=== PATIENT | male | born 1975 | race Caucasian/White ===

== ENCOUNTER → 2018-03-10 07:19 | Outpatient (CLI) | payer BC ==
[2015-01-10 06:02] VITALS: BMI 37.6
[~2018-03-10 07:19] MED LIST: CYMBALTA30 MG PO; HYDROCODONE-APA1 TAB PO; NORVASC10 MG PO; PRINIVIL20 MG PO; SOMA350 MG PO; TESTOSTERON200 MG/ML IM; VOLTAREN75 MG PO
[2018-03-10 07:39] LABS: BASOPHILS 0.3 % (0-2); HEMOGLOBIN 16.1 g/dL (13.5-17.5); IMMATURE GRANULOCYTES 0.5 % (0-5); LYMPHOCYTES 30.7 % (15-50); MCH 31.9 pg (26.0-34.0); MCHC 35.8 g/dL (31.0-37.0); MCV 89.1 fL (80.0-100.0); MEAN PLATELET VOLUME 9.3 fL (7.4-10.4); MONOCYTES 12.5 % (2-11); PLATELET COUNT 244 10x3/uL (130-400); RBC 5.05 10x6/uL (4.20-6.10); RDW 14.2 % (11.5-14.5); WBC 6.2 10x3/uL (4.8-10.8)
[2018-03-10 08:05] LABS: ALBUMIN 3.7 g/dL (3.4-5.0); ALKALINE PHOSPHATASE 89 U/L (46-116); ALT (SGPT) 52 U/L (10-68); BILIRUBIN - TOTAL 0.33 mg/dL (0.2-1.3); CALCIUM 8.6 mg/dL (8.5-10.1); CARBON DIOXIDE 24.3 mmol/L (21.0-32.0); CHLORIDE - SERUM 101 mmol/L (98-107); CHOL - HDL RATIO 6.4 ratio (2.3-4.9); CHOLESTEROL, TOTAL 217 mg/dL (0-200); CREATININE - SERUM 1.1 mg/dL (0.6-1.3); HDL CHOLESTEROL 34 mg/dL (32-96); POTASSIUM - SERUM 4.2 mmol/L (3.5-5.1); PROTEIN - SERUM 7.8 g/dL (6.4-8.2); SODIUM 136 mmol/L (136-145); TRIGLYCERIDE 495 mg/dL (30-200); UREA NITROGEN 16 mg/dL (7-18); eGFR NON AFRICAN AMERICAN 77 mL/min (90-120)
[2018-03-10 08:06] LABS: CALC OSMOLALITY 279 mosm/kg (275-300); GLUCOSE 223 mg/dL (74-106)
[2018-03-12 04:13] LABS: TESTOSTERONE - FREE 17.7 pg/mL (6.8-21.5); TESTOSTERONE - SERUM 334 ng/dL (264-916)
== END | disposition home or self-care (01) ==
LOC: D.LAB 03-09 08:24
PROVIDERS: Family Medicine
DX: I10 Essential (primary) hypertension (principal); R79.89 Other specified abnormal findings of blood chemistry; E11.9 Type 2 diabetes mellitus without complications

== ENCOUNTER → 2019-01-04 14:43 | Outpatient (CLI) | payer BC ==
[2015-01-10 06:02] VITALS: BMI 37.6
== END | disposition home or self-care (01) ==
LOC: D.MRI 14:43
PROVIDERS: ATTEND Orthopaedic Surgery
DX: M25.561 Pain in right knee (principal); M54.12 Radiculopathy, cervical region